=== PATIENT | female | born 1990 | race Caucasian/White ===

== ENCOUNTER → 2020-05-17 | Outpatient (CLI) | payer OTHER ==
[2020-05-17 10:04] LABS: BASO # 0.1 10*3/uL (0.0-0.1); BASO % 0.6 % (0.0-1.0); EOS # 0.2 10*3/uL (0.0-0.4); EOS % 2.3 % (1.0-4.0); HEMATOCRIT 40.3 % (37.0-47.0); LYMPH % 23.3 % (27.0-41.0); MEAN CELL VOLUME 80.9 fl (81.0-99.0); MEAN CORPUSCULAR HGB 25.1 pg (27.0-31.0); MEAN PLATELET VOLUME 9.4 fl (9.6-12.3); MONO # 0.6 10*3/uL (0.1-1.0); MONO % 7.1 % (3.0-9.0); NEUT # 5.8 10*3/uL (2.3-7.9); NEUT % 66.5 % (47.0-73.0); PLATELET COUNT AUTOMATED 326 10*3/uL (130-400); RED BLOOD COUNT 4.98 10*6/uL (4.10-5.10); RED CELL DISTRI WIDTH 15.5 % (0-14.5); WHITE BLOOD COUNT 8.8 10*3/uL (4.8-10.8)
[2020-05-17 10:21] LABS: ALBUMIN 3.7 gm/dl (3.1-4.5); ALKALINE PHOSPHATASE 110 U/L (45-117); BUN 11 mg/dl (7-24); CHLORIDE 104 mmol/L (98-107); CHOLESTEROL 220 mg/dL (<200); CREATININE 0.74 mg/dL (0.55-1.02); FREE T4 1.33 ng/dl (0.76-1.46); HDL CHOLESTEROL 38 mg/dl (40-60); LDL CHOLESTEROL 154 mg/dL (9-159); POTASSIUM 4.2 mmol/L (3.5-5.1); SGOT/AST 13 IU/L (3-35); SGPT/ALT 20 U/L (12-78); SODIUM 137 mmol/L (136-145); TOTAL PROTEIN 8.3 gm/dL (6.4-8.2); TRIGLYCERIDES 138 mg/dl (<150); VLDL CHOLESTEROL 28 mg/dL (6-40)
[2020-05-17 11:07] LABS: VITAMIN D, 25-HYDROXY 46.5 ng/mL (30-100)
== END | disposition home or self-care (01) ==
LOC: LAB 09:35
PROVIDERS: Internal Medicine
DX: Z00.00 Encounter for general adult medical examination without abnormal findings (principal); E03.9 Hypothyroidism, unspecified; E55.9 Vitamin D deficiency, unspecified

== ENCOUNTER → 2022-01-16 | Outpatient (CLI) | payer BC ==
[2022-01-17 03:06] LABS: HEPATITIS B SURFACE AB Reactive (.); HEPATITIS B SURFACE AG Negative (Negative)
[2022-01-17 16:08] LABS: RUBEOLA AB IGG >300.0 AU/mL (Immune >16.4); VARICELLA-ZOSTER IGG 1281 index (Immune >165)
== END | disposition home or self-care (01) ==
LOC: LAB 09:34
PROVIDERS: ATTEND Internal Medicine
DX: Z00.00 Encounter for general adult medical examination without abnormal findings (principal)

== ENCOUNTER → 2022-01-17 | Outpatient (CLI) | payer BC ==
[2022-01-19 19:06] LABS: TB1 Ag VALUE 0.03 IU/mL (.)
== END | disposition home or self-care (01) ==
LOC: LAB 09:56
PROVIDERS: ATTEND Internal Medicine
DX: Z00.00 Encounter for general adult medical examination without abnormal findings (principal)

== ENCOUNTER → 2023-06-24 | Outpatient (CLI) | payer BC ==
[2023-06-24 15:24] LABS: BASO # 0.1 10*3/uL (0.0-0.1); BASO % 0.6 % (0.0-1.0); EOS # 0.2 10*3/uL (0.0-0.4); EOS % 1.7 % (1.0-4.0); HEMATOCRIT 39.1 % (37.0-47.0); LYMPH # 2.3 10*3/uL (1.3-4.4); LYMPH % 26.3 % (27.0-41.0); MEAN CORPUSCULAR HGB CONC 32.5 g/dl (33.0-37.0); MEAN PLATELET VOLUME 10.4 fl (9.6-12.3); MONO # 0.6 10*3/uL (0.1-1.0); MONO % 6.4 % (3.0-9.0); NEUT # 5.6 10*3/uL (2.3-7.9); NEUT % 64.8 % (47.0-73.0); PLATELET COUNT AUTOMATED 366 10*3/uL (130-400); RED BLOOD COUNT 4.71 10*6/uL (4.10-5.10); RED CELL DISTRI WIDTH 14.3 % (0-14.5); WHITE BLOOD COUNT 8.7 10*3/uL (4.8-10.8)
[2023-06-24 15:38] LABS: ALKALINE PHOSPHATASE 100 U/L (46-116); BUN 5 mg/dl (9-23); CHLORIDE 107 mmol/L (98-107); CHOLESTEROL 150 mg/dL (<200); FREE T4 1.22 ng/dl (0.89-1.76); LDL CHOLESTEROL 94 mg/dL (9-159); POTASSIUM 4.1 mmol/L (3.4-5.1); SGPT/ALT 11 U/L (10-49); TOTAL PROTEIN 7.4 gm/dL (6.0-8.0); TRIGLYCERIDES 133 mg/dl (<150); VITAMIN D, 25-HYDROXY 33.1 ng/mL (30-100)
== END | disposition home or self-care (01) ==
LOC: LAB 12:32
PROVIDERS: ATTEND Internal Medicine
DX: E11.9 Type 2 diabetes mellitus without complications (principal); E55.9 Vitamin D deficiency, unspecified; F41.1 Generalized anxiety disorder; F90.9 Attention-deficit hyperactivity disorder, unspecified type

== ENCOUNTER 2024-05-08 01:13 | Emergency (ER) | payer BC ==
[~2024-05-08] VITALS: Ht 180.3 cm; Wt 81.6 kg
[2024-05-08] MEDS ORDERED: Dicyclomine Hydrochloride 20 MG/10 ML OSYR PO STA (01:33)
[2024-05-08] MEDS ORDERED: Lidocaine Hydrochloride 15 ML UDC PO STA (01:33)
[2024-05-08] MEDS ORDERED: MG-AL HYDROXIDE/SIMETICONE 30 ML UDC PO STA (01:33)
[2024-05-08] MEDS ORDERED: LORazepam 0.5 MG TAB PO PRN (01:35)
[2024-05-08] MEDS ORDERED: LISDEXAMFETAMIN60 MG PO (01:36)
[2024-05-08] MEDS ORDERED: LEVOTHYROXINE112 MCG PO (01:36)
[2024-05-08] MEDS ORDERED: BUPROPION XL300 MG PO (01:36)
[2024-05-08 01:42] LABS: BASO # 0.1 10*3/uL (0.0-0.1); BASO % 0.9 % (0.0-1.0); EOS # 0.3 10*3/uL (0.0-0.4); EOS % 2.7 % (1.0-4.0); HEMATOCRIT 39.6 % (37.0-47.0); LYMPH # 2.8 10*3/uL (1.3-4.4); LYMPH % 26.8 % (27.0-41.0); MEAN CELL VOLUME 92.1 fl (81.0-99.0); MEAN CORPUSCULAR HGB 30.2 pg (27.0-31.0); MEAN CORPUSCULAR HGB CONC 32.8 g/dl (33.0-37.0); MEAN PLATELET VOLUME 9.2 fl (9.6-12.3); MONO # 0.8 10*3/uL (0.1-1.0); MONO % 7.4 % (3.0-9.0); NEUT # 6.6 10*3/uL (2.3-7.9); NEUT % 61.9 % (47.0-73.0); PLATELET COUNT AUTOMATED 289 10*3/uL (130-400); RED CELL DISTRI WIDTH 13.4 % (0-14.5); WHITE BLOOD COUNT 10.6 10*3/uL (4.8-10.8)
[2024-05-08 02:06] LABS: BUN 7 mg/dl (9-23); CHLORIDE 106 mmol/L (98-107)
[2024-05-08 02:42] LABS: BILIRUBIN Negative (Negative); BLOOD Negative (Negative); CLARITY Clear (Clear); COLOR Yellow (Yellow); GLUCOSE Negative (Negative); KETONE Negative (Negative); LEUKO ESTERASE Trace (Negative); NITRITE Negative (Negative); PH 5.5 (4.5-8.0); UROBILINOGEN 0.2 E.U./dl (0.0-1.0)
[2024-05-08 02:48] LABS: BACTERIA 1+; MUCOUS 1+; RBC 0-2 rbc/hpf (0-2)
[2024-05-08] MEDS ORDERED: PEPCID AC10 M2 PO (03:36)
== END 2024-05-08 03:37 | disposition home or self-care (01) ==
LOC: ED 01:13
PROVIDERS: Internal Medicine
DX: K21.9 Gastro-esophageal reflux disease without esophagitis (principal); R07.89 Other chest pain; Z88.8 Allergy status to other drugs, medicaments and biological substances; Z90.49 Acquired absence of other specified parts of digestive tract; Z98.890 Other specified postprocedural states

== ENCOUNTER 2024-08-02 03:42 | Inpatient (IN) | payer BC ==
[~2024-08-02] VITALS: Ht 180.3 cm; Wt 81.6 kg
[2024-08-02] VITALS (8 sets, daily range): BP systolic 116–147; BP diastolic 72–87
[~2024-08-02 03:42] MED LIST: BUPROPION XL300 MG PO; LEVOTHYROXINE112 MCG PO; LISDEXAMFETAMIN60 MG PO; PEPCID AC10 M2 PO
[2024-08-02] MEDS ORDERED: OZEMPIC2 MG/0.71 SQ (04:05)
[2024-08-02] MEDS ORDERED: Lidocaine Hydrochloride 15 ML UDC PO ONE (04:15)
[2024-08-02] MEDS ORDERED: MG-AL HYDROXIDE/SIMETICONE 30 ML UDC PO ONE (04:15)
[2024-08-02] MEDS ORDERED: Dicyclomine Hydrochloride 20 MG/10 ML OSYR PO ONE (04:15)
[2024-08-02 04:42] LABS: BASO # 0.1 10*3/uL (0.0-0.1); BASO % 0.7 % (0.0-1.0); EOS # 0.2 10*3/uL (0.0-0.4); EOS % 1.9 % (1.0-4.0); HEMATOCRIT 38.9 % (37.0-47.0); LYMPH % 19.9 % (27.0-41.0); MEAN CELL VOLUME 88.6 fl (81.0-99.0); MEAN CORPUSCULAR HGB 29.4 pg (27.0-31.0); MEAN CORPUSCULAR HGB CONC 33.2 g/dl (33.0-37.0); MEAN PLATELET VOLUME 9.2 fl (9.6-12.3); MONO # 0.7 10*3/uL (0.1-1.0); MONO % 7.1 % (3.0-9.0); NEUT # 6.9 10*3/uL (2.3-7.9); NEUT % 70.2 % (47.0-73.0); PLATELET COUNT AUTOMATED 300 10*3/uL (130-400); RED BLOOD COUNT 4.39 10*6/uL (4.10-5.10); RED CELL DISTRI WIDTH 12.9 % (0-14.5); WHITE BLOOD COUNT 9.9 10*3/uL (4.8-10.8)
[2024-08-02 05:12] LABS: ALKALINE PHOSPHATASE 88 U/L (46-116); BUN 6 mg/dl (9-23); CHLORIDE 103 mmol/L (98-107); LIPASE 38 U/L (12-53); POTASSIUM 3.4 mmol/L (3.4-5.1); SGPT/ALT 11 U/L (5-49); TOTAL PROTEIN 7.2 gm/dL (6.0-8.0)
[2024-08-02] MEDS ORDERED: fentaNYL CITRATE 100 MCG/2 ML VIAL IV ONE ×2 (05:40→13:23)
[2024-08-02] MEDS ORDERED: HYDROmorphONE Hydrochloride 0.5 MG/0.5 ML SYRINGE IV ONE ×2 (06:50→07:45)
[2024-08-02] MEDS ORDERED: Lactated Ringer's Solution 1,000 ML IV ONE ×3 (10:25→11:56)
[2024-08-02] MEDS ORDERED: BUPIVACAINE 0.5% 30 ML IV ONE (10:32)
[2024-08-02] MEDS ORDERED: ACETAMINOPHEN 100 ML IV ONE (10:43)
[2024-08-02] MEDS ORDERED: ceFAZolin sodium/sodium chlor 20 ML IV ONE (10:50)
[2024-08-02] MEDS ORDERED: HYDROmorphONE Hydrochloride 1 MG/ML SYR IV ONE (12:30)
[2024-08-02] MEDS ORDERED: HYDROmorphONE Hydrochloride 1 ML IV ONE (12:40)
[2024-08-02] MEDS ORDERED: COLACE100 MG PO (13:09)
[2024-08-02] MEDS ORDERED: PERCOCET 5-3251 EACH PO (13:09)
[2024-08-02] MEDS ORDERED: SEVOFLURANE 250 ML BOT INH ONE (13:23)
[2024-08-02] MEDS ORDERED: SUGAMMADEX SODIUM 200 MG/2 ML VIAL IV ONE (13:23)
[2024-08-02] MEDS ORDERED: Midazolam Hydrochloride 2 MG/2 ML VIAL IV ONE (13:23)
[2024-08-02] MEDS ORDERED: Lidocaine Hydrochloride 5 ML VIAL IV ONE (13:23)
[2024-08-02] MEDS ORDERED: Succinylcholine Chloride 200 MG/10 ML SYRINGE IV ONE (13:23)
[2024-08-02] MEDS ORDERED: Dexamethasone Sodium Phospha 4 MG/ML VIAL IV ONE (13:23)
[2024-08-02] MEDS ORDERED: Ondansetron Hydrochloride 4 MG/2 ML VIAL IV ONE (13:23)
[2024-08-02] MEDS ORDERED: PROPOFOL 200 MG/20 ML VIAL IV ONE (13:23)
[2024-08-02] MEDS ORDERED: ROCURONIUM BROMIDE 50 MG/5 ML SYRINGE IV ONE (13:23)
[2024-08-03] MEDS ORDERED: FAMOTIDINE 10 MG TAB PO SCH (10:00)
[2024-08-03] MEDS ORDERED: buPROPion XL 150 MG TAB PO SCH (10:00)
== END 2024-08-02 13:53 | disposition home or self-care (01) | DRG 418 ==
LOC: ED 03:42 → EDHOLD 08:46
PROVIDERS: Emergency Medicine; ADMIT Internal Medicine; ATTEND Internal Medicine
PROC: 0FT44ZZ Resection of Gallbladder, Percutaneous Endoscopic Approach (ICD-10-PCS; principal; 2024-08-02)
DX: K80.00 Calculus of gallbladder with acute cholecystitis without obstruction (principal); F33.1 Major depressive disorder, recurrent, moderate; K21.00 Gastro-esophageal reflux disease with esophagitis, without bleeding; E03.9 Hypothyroidism, unspecified; F98.8 Other specified behavioral and emotional disorders with onset usually occurring in childhood and adolescence; Z88.8 Allergy status to other drugs, medicaments and biological substances; Z91.09 Other allergy status, other than to drugs and biological substances; Z79.899 Other long term (current) drug therapy